=== PATIENT | female | born 1970 | race Caucasian/White ===

== ENCOUNTER → 2021-02-20 08:08 | Outpatient (BNVA) | payer OTHER, SELFPAY | PROVIDERS: Visit Provider Nurse Practitioner Family ==

== ENCOUNTER 2021-03-16 11:52 | Day surgery (SDC) | payer OTHER, SELFPAY ==
[2021-03-10 14:41] VITALS: BMI 21.1
--- NOTE | 2021-03-15 15:04 | HO.ANESPROP2 ---
Documented by User: Marbella Cain NP 03/15/21 15:05 HPI - Anesthesia Eval Consult details Narrative: 50yo F for Colonoscopy [facility] Past Medical History Medical History (Updated 03/10/21 @ 14:39 by Cherelle Hall, RN) COVID-19 vaccine series completed Elevated cholesterol GERD (gastroesophageal reflux disease) HTN (hypertension) Surgical History Surgical History (Updated 03/10/21 @ 14:39 by Cherelle Hall RN) History of endoscopy History of hand surgery History of tonsillectomy [place] teeth extracted Social History Social History Household Members: Family Are you a primary care coordination manager to a significant other at home: No Do you presently have visiting nurse or other home services: No Alcohol intake: current Alcohol intake frequency: a few times a month Patient Tobacco Use Status: Former Tobacco user Quit Date: 10 yrs ago Tobacco use type: Cigarette Use of substances other than those prescribed or required for medical reasons: No Have you been hit, kicked, punched, or otherwise hurt by someone within the past year? If so, by whom?: No Are you DNR?: No Advance Directives: No Advance Directives Information Provided: No Advance Directives on File: No Recently lost weight without trying: No Eating poorly because of decreased appetite: No Nutrition Risks: No Nutritional Risk Patient : No Meds Allergies Allergy/AdvReac Type Severity Reaction Status Date / Time amoxicillin AdvReac Severe Anaphylaxis Verified 03/10/21 14:40 Home Medications Medication Instructions Recorded Confirmed Last Taken Type amlodipine 5 mg tablet 5 mg PO DAILY 02/20/21 03/10/21 Unknown History omeprazole 20 mg capsule,delayed 20 mg PO DAILY 02/20/21 03/10/21 Unknown History release rosuvastatin 5 mg tablet 5 mg PO BEDTIME 02/20/21 03/10/21 Unknown History Exam Exam Date and Time: March 15, 2021 1504 Height,Weight and Vital Signs: Height 5 ft 7 in Weight 61.235 kg Assessment and Plan Assessment Anesthesia Assessment: Chart Reviewed Documented by User: Renée Plaza MD 03/16/21 12:51 [facility] Past Medical History Medical History (Updated 03/10/21 @ 14:39 by Cherelle Hall, RN) COVID-19 vaccine series completed Elevated cholesterol GERD (gastroesophageal reflux disease) HTN (hypertension) Functional capacity: independent ambulation Patient : No Family History Family history of problems with anesthesia: No Surgical History Surgical History (Updated 03/10/21 @ 14:39 by Cherelle Hall, RN) History of endoscopy History of hand surgery History of tonsillectomy [place] teeth extracted History of Problems with Anesthesia: No Social History Social History Household Members: Family Are you a primary care coordination manager to a significant other at home: No Do you presently have visiting nurse or other home services: No Alcohol intake: current Alcohol intake frequency: a few times a month Patient Tobacco Use Status: Former Tobacco user Quit Date: 10 yrs ago Tobacco use type: Cigarette Use of substances other than those prescribed or required for medical reasons: No Have you been hit, kicked, punched, or otherwise hurt by someone within the past year? If so, by whom?: No Are you DNR?: No Advance Directives: No Advance Directives Information Provided: No Advance Directives on File: No Recently lost weight without trying: No Eating poorly because of decreased appetite: No Nutrition Risks: No Nutritional Risk Patient : No Meds Allergies Allergy/AdvReac Type Severity Reaction Status Date / Time amoxicillin AdvReac Severe Anaphylaxis Verified 03/10/21 14:40 Home Medications Medication Instructions Recorded Confirmed Last Taken Type amlodipine 5 mg tablet 5 mg PO DAILY 02/20/21 03/10/21 Unknown History omeprazole 20 mg capsule,delayed 20 mg PO DAILY 02/20/21 03/10/21 Unknown History release rosuvastatin 5 mg tablet 5 mg PO BEDTIME 02/20/21 03/10/21 Unknown History Exam Airway Mallampati Class: II TM Dist: >3cm Neck ROM: Full Heart: RRR Lungs: CTA Assessment and Plan Final Anesthetic Review Family History of Problems with Anesthesia: No History of Problems with Anesthesia: No
--- NOTE | 2021-03-16 12:53 | P.HPSUR_ITS ---
Pre-Procedural Eval Section A Date of Service: 03/16/21 Section B Chief Complaint: Irritable bowel syndrome without diarrhea Relevant Family History (Specify if Yes): No Relevant Social History: Other (specify) Present Medications: see Short Stay Collaborative assessment Medical History: Significant History (Elevated cholesterol GERD (gastroesophageal reflux disease) HTN (hypertension)) History of Previous Operations: Relevant previous surgery/procedure and date(s) (History of endoscopy History of hand surgery History of tonsillectomy [place] teeth extracted) Allergies: Allergies Allergy/AdvReac Type Severity Reaction Status Date / Time amoxicillin AdvReac Severe Anaphylaxis Verified 03/10/21 14:40 Review of Systems Sugical H&P ROS: Negative: Constitution, Cardiovascular, Respiratory, Neurological, Psychiatric, Hem-Onc, Allergic/Immunologic, Gastrointestinal, Genitourinary, Musculoskeletal, Integumentary, Endocrine and Eyes/Ears/Nose/Throat Exam Surgical H&P Exam: Normal: HEENT, Normal: Heart, Normal: Lungs, Normal: Extremities, Normal: Abdomen, Normal: Skin and Normal: Neurological Plan Diagnosis/Plan: Unchanged I have reviewed the history and physical and performed a pertinent physical examination on my patient. No changes have occurred unless specified.
[2021-03-16 12:54] VITALS: BP 117/78; PULSE 98; RESP 16; TEMP 533.3; TEMP 992; O2SAT 99
[2021-03-16] MEDS: Lactated Ringers 1,000 ML 100 ML IVCONT (12:58)
--- NOTE | 2021-03-16 13:33 | PM.OP ---
Brief Operative Note Date of Service: 03/16/21 Pre-op diagnosis: hx of IBS, diarrhea, needs screening as well Post-op diagnosis: same Procedure: see op note Surgeon: Ricki Kramer MD Anesthesia: MAC Was an Dust Control Engineer used for this Procedure?: No Estimated blood loss (mL): 0 Condition: stable Disposition: PACU
--- NOTE | 2021-03-16 13:33 | W.PM.OPN ---
Operative Note Operative Note Date of Service: 03/16/21 Narrative: Operative Information Procedure Description: Colonoscopy COLONOSCOPY Instrument: Olympus variable stiffness pediatric scope 190L Colonoscopy Monitoring: Vital signs and clinical assessment, continuous EKG monitoring, Pulse oximetry, Carbon Dioxide monitoring and blood pressure monitoring were done throughout the procedure. Colon withdrawal time was [] minutes. Procedure: The patient was placed in the left lateral decubitis position and pre-procedure medications were administered. After a digital rectal examination of the ano-rectum, the video colonoscope was inserted into the rectum and advanced through the colon to the cecum/TI. The colonoscope was slowly withdrawn in a retrograde panoramic fashion and the colon mucosa was carefully examined including a retroflexed view of the rectum. Findings and interventions are described below. Procedure Difficulty:moderate, pressure applied due to looping Findings: Terminal Ileum-normal, bx taken random bx taken to r/o microscopic colitis Cecum:normal Ascending Colon: normal, few diverticula seen Transverse Colon -normal, few diverticula seen Descending Colon:normal, several small tics seen Sigmoid Colon: many diverticula seen Rectum: Retroflexion with small internal hemorrhoids, grade I Anorectum - normal Colon preparation: [place] Bowel Preparation Scale Right colon; 1 Transverse colon: 2 Left colon; 2 (0 = Unprepared colon segment with mucosa not seen due to solid stool that cannot be cleared. 1 = Portion of mucosa of the colon segment seen, but other areas of the colon segment not well seen due to staining, residual stool and/or opaque liquid. 2 = Minor amount of residual staining, small fragments of stool and/or opaque liquid, but mucosa of colon segment seen well. 3 = Entire mucosa of colon segment seen well with no residual staining, small fragments of stool or opaque liquid) Impression and Post Procedure Diagnosis: internal hemorrhoids diverticular disease Plan: High fiber diet leaflet Avoid straining at stool, epsom salts and sitz bath, anusol supps or cream Repeat Colonoscopy in 5 years due to right sided prep or earlier if clinically indicated, next time consider 2 d prep Above findings were reviewed with the patient and relevant handouts were provided if indicated.
[2021-03-16 13:42] VITALS: BP 104/64; PULSE 73; RESP 12; TEMP 36.3; O2SAT 100
[2021-03-16 13:57] VITALS: BP 117/74; PULSE 74; RESP 20; TEMP 36.3; O2SAT 100
--- NOTE | 2021-03-16 14:43 | HO.POSTANES ---
Post Anesthesia Evaluation Post Anesthesia Evaluation Vital Signs: Vital Signs Temp Pulse Resp BP Pulse Ox 03/16/21 13:57 97.4 F 74 20 117/74 100 03/16/21 13:42 97.4 F 73 12 104/64 100 03/16/21 12:54 992 F H 98 16 117/78 99 Anesthesia: Monitored Mental Status: Awake Pain Control: Satisfactory Nausea/Vomiting: None Hydration: Adequate Anesthesia-Related Issues: No Anes. Related Issues
== END 2021-03-16 14:27 | disposition home or self-care (01) ==
PROVIDERS: PCP Internal Medicine; Visit Provider Internal Medicine Gastroenterology
PROC: 0DJD8ZZ Inspection of Lower Intestinal Tract, Via Natural or Artificial Opening Endoscopic (ICD-10-PCS; CPT 45378; principal; 2021-03-16 13:10)
DX: Z12.11 Encounter for screening for malignant neoplasm of colon (principal); K57.30 Diverticulosis of large intestine without perforation or abscess without bleeding; K64.0 First degree hemorrhoids; K58.2 Mixed irritable bowel syndrome; K21.9 Gastro-esophageal reflux disease without esophagitis; I10 Essential (primary) hypertension; E78.00 Pure hypercholesterolemia, unspecified; Z88.0 Allergy status to penicillin
CPT/HCPCS: 45380; 88305; J3010

== ENCOUNTER → 2021-04-19 10:02 | Outpatient (BNVA) | payer OTHER, SELFPAY | PROVIDERS: PCP Internal Medicine; Visit Provider Nurse Practitioner Family ==

== ENCOUNTER → 2021-07-25 09:49 | Outpatient (BNVA) | payer OTHER, SELFPAY | PROVIDERS: PCP Internal Medicine; Visit Provider Nurse Practitioner Family ==

== ENCOUNTER → 2022-07-27 08:25 | Outpatient (BNVA) | payer OTHER, SELFPAY | PROVIDERS: PCP Internal Medicine; Visit Provider Nurse Practitioner Family | DX: Z13.89 Encounter for screening for other disorder (principal) ==

== ENCOUNTER 2023-07-29 08:22 | Outpatient (AMB) | payer OTHER, SELFPAY ==
--- NOTE | 2023-07-29 08:25 | MHC.OFFVIS ---
Intake Vital Signs 07/29/23 08:28 Height 5 ft 7 in Weight 138 lb 14.259 oz BMI 21.8 BP 144/82 H Blood Pressure Location Lt brachial Position Sitting Pulse 99 Intake Visit Reasons: 1 Year fu Intake Note: Navjot presents in the office as a 1 year follow up. CC: She states that she tried to get her fiber therapy filled but she has not gotten it from her [facility] - she has been off of it. Intellectual Property Legal Assistant Required: No Allergies amoxicillin Adverse Reaction (Severe, Verified 07/29/23 08:29) Anaphylaxis HPI 1 Year fu HPI Details LAST VISIT: GERD (gastroesophageal reflux disease) Continue current dose of PPI. Discussed with patient the importance of avoiding dietary triggers and late night snacking. Staying upright for minimal 3 hours after meals discussed with patient IBS (irritable bowel syndrome) Continue taking Citrucel S patient reports to be effective. Patient states that this helps her bowels to be more firm. Patient can take also Colace to help her move her bowels daily. Patient reports that she has only occasional postprandial abdominal bloating depending on the food that she eats. Patient tried the limb low FODMAP diet. Tries to stick to the list of food that was recommended. Continue with elimination diet. I will see patient in 1 year, sooner on as needed basis. Patient is agreeable to this plan and verbalizes understanding of instructions. She was given the opportunity to ask questions all questions answered. ? Thank you for allowing me to participate in her care Plan Medications Refilled methylcellulose (laxative) (Citrucel) take it with full glass of water 500 mg PO DAILY 90 tabs 2RF K59.00 docusate sodium 100 mg PO BEDTIME 90 caps 3RF K59.00 omeprazole 20 mg PO DAILY 90 caps 3RF K21.9 Discontinued famotidine (Pepcid) Discontinued Reason: Patient no longer taking 20 mg PO BEDTIME 90 tabs 3RF K21.9 TODAY'S VISIT Patient is here today for follow-up. Patient reports that she has been feeling well since the last time I have seen her. Patient reports that she ran out of her fiber supplement and she notice big difference. More frequent bowels. Patient sometimes will have postprandial urgency. Using stool softeners only on as needed basis. Patient denies melena, hematochezia, unintentional weight loss or ribbon like stools. Patient states that she did change her diet and follows low FODMAP diet for the most part except for holidays or special occasions. Patient states that she really notices difference with food. Patient is using omeprazole every morning. Her symptoms of acid reflux are suppressed. Patient denies melena, hematochezia, unintentional weight loss or ribbon like stools. Patient states that she has been feeling generally well [facility] Medical History COVID-19 vaccine series completed Elevated cholesterol GERD (gastroesophageal reflux disease) HTN (hypertension) Surgical History History of endoscopy History of hand surgery History of tonsillectomy Hx of colonoscopy [place] teeth extracted Social History Household Members: Family Are you a primary director of home care hospice to a significant other at home: No Do you presently have visiting nurse or other home services: No Alcohol intake: current Alcohol intake frequency: a few times a month Patient Tobacco Use Status: Former Tobacco user Quit Date: 10 yrs ago Tobacco use type: Cigarette Review of Systems Const Denies weight gain and Denies weight loss ENT Reports no additional complaints, Denies dysphagia and Denies odynophagia Card Reports no additional complaints Resp Reports no additional complaints GI Denies abdominal pain, Denies belching, Denies melena, Denies bloating, Denies change in bowel habits, Denies dysphagia, Denies excessive flatus, Denies dyspepsia, Denies heartburn, Denies diarrhea, Denies loose stools, Denies nausea, Denies odynophagia and Denies vomiting Musc Reports no additional complaints Neuro Reports no additional complaints Psych Reports no additional complaints Endo Reports no additional complaints Physical Exam Vital Signs: Last Vital Signs Pulse 99 07/29/23 08:28 BP 144/82 H 07/29/23 08:28 BMI result Body Mass Index 21.8 Const General: healthy appearing, no acute distress and well developed Nutritional Appearance: well nourished Orientation/consciousness: patient oriented x3 Resp Effort & Inspection: normal respiratory effort, able to speak in complete sentences, no tracheal deviation and symmetric chest movement Auscultation: clear to auscultation bilaterally Cardio Rate: regular rate GI Inspection: Yes normal to inspection and No distended Palpation (GI): Soft to palpation, not firm, nontender and No hepatosplenomegaly present Auscultation: normal bowel sounds General: Yes no CVA tenderness Back/Spine/Pelvis Back: no CVA tenderness Skin General skin exam: elasticity normal, turgor normal and dry skin Neuro General: patient oriented x3 Psych Appearance: grossly normal Mental Status: mental status grossly normal Assessment & Plan Assessment & Plan (1) GERD (gastroesophageal reflux disease): Code(s): K21.9 - Gastro-esophageal reflux disease without esophagitis Qualifiers: Esophagitis presence: esophagitis presence not specified Qualified Code(s): K21.9 - Gastro-esophageal reflux disease without esophagitis (2) IBS (irritable bowel syndrome): Code(s): K58.9 - Irritable bowel syndrome without diarrhea Qualifiers: Irritable bowel syndrome type: with both diarrhea and constipation Qualified Code(s): K58.2 - Mixed irritable bowel syndrome Plan Continue high-fiber diet. Patient was encouraged to take probiotics. Take fiber supplements as well. Continue omeprazole daily. Discussed with patient avoiding dietary triggers late night snacking. Staying upright 3 hours after meals discussed with patient. Patient will follow-up in 1 year, sooner on as needed basis patient is agreeable to this plan and verbalizes understanding of instructions. She was given the opportunity to ask questions and all questions answered. Thank you for allowing me to participate in her care Medications: Refilled methylcellulose (laxative) (Citrucel) take it with full glass of water 500 mg PO DAILY 90 tabs 2RF K59.00 - Constipation, unspecified omeprazole 20 mg PO DAILY 90 caps 3RF K21.9 - Gastro-esophageal reflux disease without esophagitis Coding Level of Care Code Est Pt Level 3 (85331) Diagnoses Gastroesophageal reflux disease, unspecified whether esophagitis present K21.9 Esophagitis presence: esophagitis presence not specified Irritable bowel syndrome with both constipation and diarrhea K58.2 Irritable bowel syndrome type: with both diarrhea and constipation Time Spent (min) 25 Comment 15 minutes spent with patient and additional 10 minutes spent reviewing her records
[2023-07-29 08:28] VITALS: BP 144/82; PULSE 99; BMI 21.8
== END 2023-07-29 09:27 | disposition home or self-care (01) ==
PROVIDERS: PCP Internal Medicine; Visit Provider Nurse Practitioner Family
DX: K21.9 Gastro-esophageal reflux disease without esophagitis (principal); K58.2 Mixed irritable bowel syndrome
CPT/HCPCS: 99213

== ENCOUNTER → 2023-07-29 08:22 | Outpatient (BNVA) | payer OTHER, SELFPAY | PROVIDERS: Visit Provider Nurse Practitioner Family ==

== ENCOUNTER 2024-07-28 08:03 | Outpatient (AMB) | payer OTHER, SELFPAY ==
--- OUTSIDE RECORDS SUMMARY | 2024-07-28 08:11 | XMS_ITS | Clinical Summary ---
Author Organization [facility] Address [address] [place] [address] Phone Care Team Providers Care Bowling Teacher Name Role Phone Eleuterio Conti MD Primary Care Provider [phone] Allergies Active Allergy Reactions Criticality Noted Date Comments Amoxicillin Anaphylaxis High 05/25/2024 Penicillins Anaphylaxis High 05/25/2024 Medications omeprazole (PriLOSEC) [address] capsule Take 1 capsule (20 mg total) by mouth 1 (one) time each day. Do not crush or chew. Active amLODIPine (NORVASC) 5 mg tablet Take by mouth 1 (one) time each day. Active rosuvastatin (CRESTOR) 5 mg tablet Take 1 tablet (5 mg total) by mouth 1 (one) time each day. Active aspirin 81 mg EC tablet Take 1 tablet (81 mg total) by mouth 1 (one) time each day. Active Encounters Date Type Department Care Team Description 06/11/2024 7:30 AM EST - 06/11/2024 10:00 AM EST Surgery [facility] OR [address] [place] [phone] Yoselyn Jones MD LEFT THUMB [facility] ARTHROPLASTY W/ SUTURE INTERNAL BRACE & PALMARIS LONGUS AUTOGRAFT [[id number] (CPT??)] 06/11/2024 7:17 AM EST Anesthesia Event [address] [phone] Gabriel Jacobs MD Burton, Heather, CRNA 06/11/2024 5:45 AM EST - 06/11/2024 1:40 PM EST Hospital Encounter [facility] Main OR [address] [place] [address] Yoselyn Jones MD Unilateral primary osteoarthritis of first carpometacarpal joint, left hand Discharge Disposition: Home or Self Care from Last 3 Months Surgical History Surgery Date Site/Laterality Comments CARPAL TUNNEL RELEASE Left MENISCECTOMY Right Medical History Medical History Date Comments Hypertension Hyperlipidemia Arthritis Social History Tobacco Use Types Packs/Day Years Used Date Smoking Tobacco: Former Cigarettes Tobacco Cessation:Counseling Given: Not Answered Alcohol Use Standard Drinks/Week Comments Yes 0 (1 standard drink = 0.6 oz pur e alcohol) occasionally Interpersonal Safety Answer Date Record ed Physical Abuse 06/11/2024 Verbal Abuse 06/11/2024 Comments No Sex and Gender Information Value Date Recorded Sex Assigned at Female 06/10/2024 1:10 PM EST Legal Sex Female 1:36 PM EDT Gender Identity Female 06/10/2024 1:10 PM EST Sexual Orientation Straight 06/10/2024 1: 10 PM EST Obstetrics History Last Filed Vital Signs Vital Sign Reading Time Taken Comments Blood Pressure 114/63 06/11/2024 12:51 PM EST Pulse 81 06/11/2024 12:51 PM EST Temperature 36.4 ??C (97.6 ??F) 06/11/2024 12:[address] Respiratory Rate 18 06/11/2024 12:51 PM EST Oxygen Saturation 96% 06/11/2024 12:51 PM EST Inhaled Oxygen Concentration - - Weight 61.2 kg (135 lb) 05/25/2024 10:00 AM EST Height 170.2 cm (5' 7 ) 05/25/2024 10:00 AM EST Body Mass Index 21.14 05/25/2024 10:00 AM EST Plan of Treatment Health Maintenance Due Date Last Done Comments Breast Cancer Screening 1968 DTaP,Tdap,and Td Vaccines (1 - Tdap) 09/18/1987 Hepatitis B Vaccines (1 of 3 - 19+ 3-dose series) 09/18/1987 Cervical Cancer Screening: P ap Smear 1989 Pneumococcal Vaccine: 50+ Years (1 of 1 - PCV) 2018 Zoster Vaccines (1 of 2) 2018 Colorectal Cancer Screening: Colonoscopy 12/27/2023 Depression Screening 12/27/2023 HIV Screening 12/27/2023 Hepatitis C Screening 12/27/2023 Social Influencers of Health Screening 12/27/2023 COVID-19 Vaccine (2023-2 5 season) 2024 05/03/2021, 09/26/2020, 09/04/2020 Influenza Vaccine (#1) 2024 HIB Vaccines Aged Out No longer eligi ble based on patient's age to complete this topic HPV Vaccines Aged Out No longer eligi ble based on patient's age to complete this topic Hepatitis A Vaccines Aged Out No long er eligible based on patient's age to complete this topic IPV Vaccines Aged Out No longer eligi ble based on patient's age to complete this topic MMR Vaccines Aged Out No longer eligi ble based on patient's age to complete this topic Meningococcal ACWY Vaccine Aged Out N o longer eligible based on patient's age to complete this topic Meningococcal B Vacine Aged Out No lo nger eligible based on patient's age to complete this topic Pneumococcal Vaccine: Pediatrics (0 to 5 Years) and At-Risk Patients (6 to 64 Years) Aged Out No longer eligible b ased on patient's age to complete this topic RSV Immunization Patients Under 20 months Aged Out No longer eligible b ased on patient's age to complete this topic Varicella Vaccines Aged Out No longer eligible based on patient's age to complete this topic Medical Devices Implanted Type Area Boom Operator Device Identifier Shelf Expiration Date Model / Serial / Lot Kit Dx Swivelock 3.5x8.5mm W/Fork Eyelet - Sn/A - [id number] Implanted:Qty: 1 on 06/11/2024 by Yoselyn Jones MD at [facility] Arthroscopy Implants Sports Med Left: Hand [employer] 07/24/2028 AR-8978P / N/A / [id number] Kit Dx Swivelock 3.5x8.5mm W/Fork Eyelet - Sn/A - [id number] Implanted:Qty: 1 on 06/11/2024 by Yoselyn Jones MD at [facility] Arthroscopy Implants Sports Med Left: Hand [employer] 08/24/2028 AR-8978P / N/A / [id number] Dental Implants Dental Implants Bilatera l: Mouth Procedures Procedure Name Priority Date/Time Associated Diagnosis Comments TH AN LMA(NO CHARGE) Routine 06/11/2024 8:57 AM EST TISSUE EXAM Routine 06/11/2024 8:09 AM EST Unilateral primary osteoarthritis of first carpometacarpal joint, left hand WI EXCISION GANGLION WRIST DORSAL/VOLAR RECURRENT 06/11/2024 7:45 AM EST Unilateral primary osteoarthritis of first carpometacarpal joint, left hand Case Notes MINI C-ARM, ARTHREX INTERNAL BRACE, TENDON HARVESTER, 2-0 FIBERWIRE OR ETHIBOND, 0.063 KWIRE , REGIONAL W/ MAC WI REMOVAL OF IMPLANT DEEP 06/11/2024 7:45 AM EST Unilateral primary osteoarthritis of first carpometacarpal joint, left hand Case Notes MINI C-ARM, ARTHREX INTERNAL BRACE, TENDON HARVESTER, 2-0 FIBERWIRE OR ETHIBOND, 0.063 KWIRE , REGIONAL W/ MAC WI ARTHROPLASTY INTERCARPAL/CARPOM ETACARPAL JOINTS INTERPOSTION 06/11/2024 7:45 AM EST Unilateral primary osteoarthritis of first carpometacarpal joint, left hand Case Notes MINI C-ARM, ARTHREX INTERNAL BRACE, TENDON HARVESTER, 2-0 FIBERWIRE OR ETHIBOND, 0.063 KWIRE , REGIONAL W/ MAC POC PREGANCY, URINE SCREENING Routine 06/11/2024 7:34 AM EST TH AN NERVE BLOCK AXILLARY (NO CHARGE) Routine 06/11/2024 7:26 AM EST TH AN NERVE BLOCK AXILLARY (CHARGE) Routine 06/11/2024 7:26 AM EST from Last 3 Months Results * TH AN LMA(NO CHARGE) (06/11/2024 8:57 AM EST) Narrative Marbella Betts CRNA - 06/11/2024 8:57 AM EST Marbella Betts CRNA ? 06/11/2024 ??8:58 AM General Information and Staff Patient location during procedure: OR Performed: resident/EARTHMOVING PLANT OPERATOR/CAA Performed by: Marbella Betts CRNA Authorized by: Gabriel Jacobs MD ?? Intubation Airway not difficult Urgency: elective Final Airway Details Number of attempts at approach: 1Final airway type: LMA Indications and Patient Condition Indications for airway management: anesthesia Spontaneous ventilation: present Sedation level: Yes Preoxygenated: yes Soft Tissue Damage: No Dentition Unchanged: Yes Patient position: neutral MILS not maintained throughout Mask difficulty assessment: 0 - not attempted Start Time: 06/11/2024 8:09 AM us Gabriel Jacobs MD ANESTHESIA ORDERABLES Final Re sult * Tissue exam (06/11/2024 8:09 AM EST) Final Diagnosis Wrist, Left, Volar: -FIBROTENDINOUS TISSUE WITH DEGENERATIVE CHANGES -Diagnostic features of a ganglion cyst are not observed. Recommend clinical correlation. 06/12/2024 11:26 AM EST [facility] Gross Description A. Wrist, Left, Volar: Labeled left wrist . Received in formalin, on Telfa, is a 1.1 x 0.5 x 0.2 cm soft to rubbery gaines-pink tissue with attached adipose tissue. The specimen is bisected and submitted in entirety in one cassette, two pieces. TS 06/12/2024 11:26 AM [facility] Disclaimer Unless otherwise specified, all tissue is 10% NB formalin fixed and paraffin embedded. 06/12/2024 11:26 AM [facility] Tissue Structure of left wrist region / Unknown 06/11/2024 8:09 AM EST 06/11/2024 12:45 PM EST us Yoselyn Jones MD LAB PATHOLOGY ORDERABLES Nya tee Result [facility] [address] [place] [address], [place] [phone] * POC , urine NO CHARGE screening manually resulted (06/11/2024 7:34 AM EST) HCG, Ur POC Negative Negative POC hCG Int QC Pass? Yes Yes Urine Urine specimen obtained by clean catch procedure / Unknown 06/11/2024 7:34 AM EST Yoselyn Jones MD POINT OF CARE TEST ENTER/EDIT ORDERABLES Final Result * TH AN NERVE BLOCK AXILLARY (CHARGE), TH AN NERVE BLOCK AXILLARY (NO CHARGE) (06/11/2024 7:26 AM EST) Narrative Gabriel Jacobs MD - 06/11/2024 7:26 AM EST Gabriel Jacobs MD ? 06/11/2024 ??7:46 AM Peripheral Block Patient location during procedure: post-op Start time: 06/11/2024 7:26 AM End time: 06/11/2024 7:30 AM Reason for block: post-op pain management Staffing Performed: anesthesiologist Anesthesiologist: Gabriel Jacobs MD Preanesthetic Checklist Completed: patient identified, IV checked, site marked, risks and benefits discussed, surgical consent, monitors and equipment checked, pre-op evaluation and timeout performed Peripheral Block Patient position: supine Prep: ChloraPrep Patient monitoring: continuous pulse ox and heart rate (NIBP) Block type: axillary Laterality: left Injection technique: single-shot Guidance: ultrasound guided and Ultrasound image saved to chart Local infiltration: lidocaine Infiltration strength: 1 % Dose: 5 mL Needle Needle type: Quincke Needle gauge: 21 G Needle length: 10 cm Needle localization: ultrasound guidance (Ultrasound with tip visualized throughout) Medications Administered ropivacaine (NAROPIN) injection 0.5 % - infiltration 30 mL - 06/11/2024 7:26:00 AM lidocaine PF (XYLOCAINE-MPF) local injection 2% - infiltration 5 mL - 06/11/2024 7:26:00 AM Assessment Injection assessment: negative aspiration for heme, no paresthesia on injection, incremental injection with negative aspiration q 5ml and local visualized surrounding nerve on ultrasound Paresthesia pain: none Heart rate change: no Slow fractionated injection: yes Additional Notes Timeout performed with bedside RN. Anesthesia and surgical consent on chart. Standard aseptic technique: hat, mask, sterile gloves, eye protection. Monitors: NIBP, SpO2, EKG Sedation with meaningful contact. Chloraprep to peripheral nurse block site. Ultrasound guidance throughout. Injectate: Ropivacaine 0.5% ?? Volume: 20 mL Decadron 4 mg mixed with local anesthetic. Charlotte-neural/fascial plane visualization of local anesthetic spread. Ultrasound image saved to chart. Block performed per surgeon request (ordered on chart). us Gabriel Jacobs MD ANESTHESIA ORDERABLES Final Re sult from Last 3 Months Insurance [facility] [address] [place] [id number] Care Teams Bowling Teacher Relationship Specialty Start Date End Date Eleuterio Conti MD [address] [place], [place] PCP - General Internal Medicine 06/11/24
--- OUTSIDE RECORDS SUMMARY | 2024-07-28 08:12 | XMS_ITS ---
Author Name [facility] Organization Unknown History of Medication Use Medication Directions Dispensed Refills Start Date End Date [facility] azithromycin 250 mg tablet TAKE DIRECTED, STARTING THE DAY AFTER SURGERY 04/09/2024 completed clindamycin HCl 150 mg capsule TAKE 1 CAPSULE BY MOUTH THREE TIMES A DAY FOR 7 DAYS STARTING THE DAY AFTER SURGERY 04/09/2024 completed oxycodone 5 mg tablet TAKE 1 TABLET EVERY 4 TO 6 HOURS BY MOUTH 06/25/2024 completed omeprazole 20 mg capsule,delayed release TAKE 1 CAPSULE BY MOUTH EVERY DAY active lidocaine (PF) 10 mg/mL (1 %) injection solution Take 1 mL by injection route. 01/02/2024 03/05/2024 completed amlodipine 5 mg tablet TAKE 1 TABLET BY MOUTH EVERY DAY active rosuvastatin 10 mg tablet TAKE 1 TABLET BY MOUTH EVERYDAY AT BEDTIME active acetaminophen 300 mg-codeine 30 mg tablet TAKE 1 TABLET BY MOUTH EVERY 6 HOURS NEEDED FOR PAIN 03/05/2024 completed triamcinolone acetonide 40 mg/mL suspension for injection Take 20 mg by injection route. 01/02/2024 04/09/2024 completed rosuvastatin 5 mg tablet TAKE 1 TABLET BY MOUTH EVERYDAY AT BEDTIME 04/09/2024 completed Fiber Therapy (methylcellulose) 500 mg tablet TAKE 1 TABLET EVERY DAY -TAKE IT WITH FULL GLASS OF WATER 07/22/2024 completed trazodone 50 mg tablet TAKE 1-2 TABLETS BY MOUTH AT BEDTIME NEEDED 06/25/2024 completed chlorhexidine gluconate 0.12 % mouthwash RINSE WITH 15 ML, HOLD FOR 30 SECONDS AND EXPECTORATE TWICE A DAY FOR 7 DAYS START DAY AFTER SURGERY 03/05/2024 completed ibuprofen 600 mg tablet PLEASE SEE ATTACHED FOR DETAILED DIRECTIONS 03/05/2024 completed rosuvastatin 10 mg tablet TAKE 1 TABLET BY MOUTH EVERYDAY AT BEDTIME active oxycodone 5 mg tablet TAKE 1 TABLET EVERY 4 TO 6 HOURS BY MOUTH 06/25/2024 completed azithromycin 250 mg tablet TAKE DIRECTED, STARTING THE DAY AFTER SURGERY 04/09/2024 active lidocaine (PF) 10 mg/mL (1 %) injection solution active amlodipine 5 mg tablet TAKE 1 TABLET BY MOUTH EVERY DAY active acetaminophen 300 mg-codeine 30 mg tablet TAKE 1 TABLET BY MOUTH EVERY 6 HOURS NEEDED FOR PAIN 03/05/2024 completed trazodone 50 mg tablet TAKE 1 TO 2 TABLETS BY MOUTH AT BEDTIME NEEDED active triamcinolone acetonide 40 mg/mL suspension for injection Take 20 mg by injection route. 01/02/2024 04/09/2024 active Allergies Allergen Reaction Severity Comment Documented Date Source Statu s AMOXICILLIN ENS_AONECT PENICILLINS ENS_AONECT Problems Problem Status Onset Date Problem Type Date of Resoluti on Source Ganglion cyst of left volar wrist active 2023-10-18 ProblemAct ENS_AONECT Arthritis of first carpometacarpal joint of left hand active 2023-10-17 ProblemAct ENS_AONECT
--- OUTSIDE RECORDS SUMMARY | 2024-07-28 08:12 | XMS_ITS | Data Portability ---
Author Organization [place] [facility] [place] Address [address] [place] [address] Care Team Providers Care Museum Service Scheduler Name Role Phone ADRIANNA MARIE MD Primary Care Provider Unav ailable ADRIANNA MARIE MD Referring Provider Unavail able ADRIANNA MARIE Primary Care Provider Assessment Encounter Date Assessment Date Assessment LastModified by Organization Details LastModified Time 12/05/2023 12/05/2023 The above findin gs were discussed in detail today with the patient. The results of the CT scan were discussed with the patient. She has a bone defect at the base of the first metacarpal, this would preclude doing a anchor and suture tape suspension if we are to do a revision surgery. Given this is would be her third surgery, she does not have a lot of options available as her FCR was already harvested for graft and now she has a defect in the first metacarpal base which makes subsequent surgeries difficult to plan for. I will discuss her case with colleagues to see if they have a solution for a revision procedure that may work for her. 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 We did touch discussed her volar ganglion cyst. I did discuss with her again that revision surgery would put her radial artery at increased risk given its location and that it would be a revision surgery. Excision of the cyst may be incomplete if it is associated with the radial artery and may lead to recurrence. I did let her know that volar ganglion cyst have a high recurrence rate at baseline with a primary surgery, revision may lead to increased risk of recurrence. We did discuss a in office aspiration, given its very subcutaneous nature, I could perform this under ultrasound guidance, avoiding the radial artery. She does not have time to do this procedure in the office today however would like to consider this and we will book a subsequent appointment when she has more time to have this done. All of her questions were answered, she will follow-up at her convenience. Not available 12/05/2023 11:57:57 01/02/2024 01/02/2024 The above findin gs were discussed in detail today with the patient. 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 We had already gone over the risks of repeat surgical excision given its proximity to the radial artery and the fact that it has a volar cyst, she does have an increased incidence of recurrence or incomplete excision if it is intimately involved with the radial artery. She would like to proceed with an office aspiration and injection. I did let her know that there is a 50% recurrence rate. She understands this and would like to proceed. Details of injection and as well as risks were discussed, including but not limited to infection, bleeding, nerve injury, no improvement, worsening of symptoms, flare reaction, skin depigmentation, and lipodystrophy. I let them know it can take 2 days to 2 weeks to start working and up to 6 weeks to take its full effect. They understand this and gave verbal consent. They tolerated the procedure well. She will wear a wrist splint for the next 1 to 2 weeks to help prevent recurrence. She will continue to monitor for recurrence of symptoms. As for the thumb CMC joint, we discussed treatment options as well. I discussed with a hand surgery colleague about revision options for people in her situation, we did discuss using a palmaris longus autograft to reconstruct the ligament at the base of the first and second metacarpals to prevent subsidence, this would be in the combination of drill holes and using an anchor. However with a second revision, there is increased risk for complications and continued symptoms after the surgery. We also discussed conservative treatment including a thumb CMC splint or bracing, anti-inflammatorie s, or another steroid injection. She like to proceed with another steroid injection today. She understands that if she would like to proceed with surgery for either of the cyst or the thumb CMC, this cannot be done until 3 months after her injection for risk for increase of infection. All of her questions were answered, she is in agreement the plan. I will see her for follow-up in 2 months. Not available 01/02/2024 12:02:23 03/05/2024 03/05/2024 The above findin gs were discussed in detail today with the patient. She did have some relief from a thumb CMC steroid injection though pain has been returning recently. She does not think that the volar ganglion cyst change much after a aspiration and injection attempt. We discussed her treatment options again which include continued with observation, activity modification, bracing, steroid injections or considering revision surgery for 1 or both of her problems. We discussed the revision thumb CMC arthroplasty again, this would involve using her palmaris longus as a tendon graft and likely an anchor to support and stabilize the thumb metacarpal. The goal would to be provide stability and decrease pain. we again discussed the risks which are higher with a second revision surgery which include pain, bleeding, damage to nerve, tendons, vessels, infection, failure which is higher with every revision surgery, continued pain, nonrelief of symptoms, stiffness, lack of function, need for revision surgery, and the risks of anesthesia. I did let her know with every revision surgery, there is a less chance that this will lead to lasting results. She understands this. We also discussed revision ganglion cyst excision and the risks associated with this including damage to the radial artery and a higher rate of recurrence especially because it is a revision surgery and has a volar ganglion cyst. She understands this. She like to about her options. She would not be able to have surgery until she is 3 months from her injection which would be in the beginning of March anyway. She will be slowing down with work over the winter which may help her symptoms, she will try braces and anti-inflammatorie s that she has at home. She will return to see me in 1 month for reevaluation. All of her questions were answered, she is in agreement the plan. Not available 03/05/2024 09:26:48 04/09/2024 04/09/2024 The above findin gs were discussed in detail today with the patient. We discussed her treatment options in detail today. She can continue with conservative treatment, activity modification, bracing, anti-inflammatorie s or consider surgery. Surgery would in the form of a revision thumb CMC arthroplasty likely with palmaris longus autograft and suture suspension and a revision volar ganglion cyst excision. I did let her know with revision surgeries for both of these problems, there is an increased risk that her symptoms do not resolve or they recur. Given that this is her third surgery for the thumb CMC, I cannot give predictable outcomes for how she do after surgery however I do think that I could improve her current pain. She would be in a splint and then a cast for at least 6 to 8 weeks after surgery and then would start physical therapy slowly to work on range of motion though I would not let her do any weightbearing pinching or grasping until she is probably 3 months from surgery as I do want to make sure that this heals and does not subside again. She understands this. Risks of surgery were discussed with the patient which include but are not limited to bleeding, infection, injury to nerves, tendons, vessels, pain, stiffness, non-relief of symptoms, recurrence, needing more surgery in the future as well as risks of anesthesia. All questions were answered to the patient's satisfaction. They understood these risks and agreed to proceed, consent was obtained today. She will obtain presurgical clearance prior to surgery as she is at increased risk for medical complications. She would like to do this in May after the holidays. We will schedule for her at her convenience. All of her questions were answered, she is in agreement the plan. Not available 04/09/2024 12:19:30 06/25/2024 06/25/2024 The above findin gs were discussed in detail today with the patient. She is 2 weeks postop status post left thumb revision CMC arthroplasty with internal brace and palmaris longus autograft, left thumb removal of implant, and left volar mass revision excision, doing well. Her postop splint was removed and she will be placed in a thumb spica cast. She will remain in this for 4 weeks. Her IP joint will be free, she can work on active IP joint motion as well as finger range of motion. She will be nonweightbearing a thing heavier than 10 pounds, no pushing or pulling. Cast care was discussed with the patient. She will return in 4 weeks for repeat evaluation, cast removal, and will be sent to physical therapy to have a custom splint made. She will start physical therapy at that time with just active gentle range of motion of the wrist and thumb. She will progress slowly with physical therapy to allow for adequate healing. I will put in a prescription for the splint to be made the day of her follow-up visit and a separate prescription for physical therapy which she wants to do closer to home in [place] at [facility]. She will wear the splint at all times except for hygiene and when she is working with physical therapy. They will progress her to wean out of the splint over the next 4 to 6 weeks. She will not do any heavy lifting or strengthening until she is 3 months from surgery. She can start scar massage at the time of her next visit. She will return to see me after that at 3 months from surgery. All of her questions were answered, she is in agreement the plan. Not available 06/25/2024 16:54:03 Plan of Treatment Reminders Order Date Submit Date Provider Last Modified By Organization Details Last Modified Time Details Appointments POST-OP 2024 11:15A M Yoselyn camacho MD Not available Not available Not available Lab None recorded. Referral None recorded. Procedures None recorded. Surgeries arthropla sty, interposi tion/inte rcarpal/C MC joints (SURG) 2023 025 [email or web address] Not available 06/12/2024 10:23:41 Imaging XR, wrist, 3 or more view 2024 025 [email or web address] [facility], [address], [place], [address], 06/25/2024 17:20:21 Medication Orders lidocaine (PF) 10 mg/mL (1 %) injection solution 2023 024 [email or web address] 243 [id number], [address], [place], [address], 03/05/2024 09:05:26 triamcino lone acetonide 40 mg/mL suspensio n for injection 2023 024 [email or web address] 2 [id number], [address] [place], [address], 04/09/2024 11:19:42 lidocaine (PF) 10 mg/mL (1 %) injection solution 2023 024 [email or web address] 243 [id number], [address] [place], [address], 03/05/2024 09:05:26 triamcino lone acetonide 40 mg/mL suspensio n for injection 2023 024 [email or web address] [id number], [address] [place], [address], 04/09/2024 11:19:42 Patient TargetsNo targets recorded. Patient Instructions Encounter Date Encounter Id Patient Instructions Last Modified By Organization Details Last Modified Time 12/05/[id number] scan of the left wrist without contrast performed on 11/19/2023 was available for review in the [facility] system. This demonstrates first metacarpal subsidence onto the distal scaphoid with a prior trapezium resection. There is a tight rope device with a button on the first and second metacarpals. There is a bone defect or cyst in the base of the first metacarpal. Impression reads trapezium resection arthroplasty with the proximal migration of the first metacarpal, pseudo articulating with the distal scaphoid. No fracture. Not available 12/05/2023 11:54:14 01/02/2024 [id number] You have been provided with a cortisone injection in order to reduce the pain and inflammation that you are experiencing. The injection consists of two medications. Cortisone (an anti-inflammatory that will take 48-72 hours to take effect) and Lidocaine (a numbing agent that will last 2-3 hours). Please note that not everyone will have a lasting response following the injection. PATIENT INSTRUCTIONS Once the Lidocaine wears off, you may have an increase in your pain. I recommend icing the affected area for 20 minutes 3-4 times per day. It is recommended that you refrain from any high level activities using the joint or limb that was injected for approximately 24-48 hours. Normal day-to-day activities are generally not a problem. POSSIBLE SIDE EFFECTS Individuals with dark complexions may experience some skin discoloration locally at the site of the injection. There is the possibility of an increase in discomfort within 48 hours following the injection. This is called a ? f lare? . To help minimize the chances of this, please see the post-injection instructions above. There is a less than 1% chance of an infection. If you notice any signs of infection (redness, warmth, drainage, fever greater than 100 degrees) please call our office or contact us through the portal [facility]. Not available 01/02/2024 12:00:03 06/25/2024 [id number] 4 views of the left wrist were ordered and reviewed today, this demonstrates arthroplasty space with preservation as compared to postoperative x-rays. The first metacarpal rests at the level of the second metacarpal. Interval removal of tight rope construct. Not available 06/25/2024 16:51:26 Reason for Referral None Reported. Results Created Date Observation Date Name Description Value Unit Range Abnormal Flag Note LastModifiedBy Organization Detail LastModifiedTime 12/05/[address], hand, w/o contr ast No observ ation record ed. [facility] [address] [place], [address], 12/05/2023 13:01:44 12/09/[address], hand, w/o contr ast No observ ation record ed. [address] [place], [address], 12/09/2023 11:47:06 Result Notes None recorded. Problems Name Problem SNOMED Code Status Onset Date Resolution Date Notes Provider Name and Address Organization Details Recorded Time Arthritis of first carpometaca rpal joint of left hand 2794500676034 103 Active 2023 Yoselyn camacho MD [address] [facility] [address], [place], [address], [place] [facility] 4 10:30:45 Ganglion cyst of left volar wrist 1687203213564 9102 Active 2023 Yoselyn camacho MD [address] [facility] [address], [place], [address], [place] [facility] 4 16:51:25 Problem Notes None recorded. Procedures Surgical History Date Name Laterality Status Provider Name and Address Organization Details Recorded Time 5 Cast Thumb Spica 11+ completed Esthela Nicho [facility] 06/25/2024 14:47:11 5 ARTHROPLASTY, INTERPOSITION/ INTERCARPAL/CM C JOINTS (SURG) completed Komal Arias [facility] 06/12/2024 10:23:55 4 Ganglion Cyst Asp/Inj w/US completed Yoselyn Jones MD [address] [facility] [address], [place], [address], [place] [facility] 01/02/2024 11:59:35 4 LES finger joint injection completed Yoselyn Jones MD [address] [facility] [address], [place], [address], [place] [facility] 01/02/2024 11:59:52 Hand Surgery completed Delmis Panchal [facility] 10/17/2023 09:41:25 Imaging Results Imaging Date Name Status LastModified by Organiz ation Details LastModified Time 12/05/2023 CT, hand, w/o contrast completed [facility] [address] [place], [address], 12/05/2023 13:01:44 12/09/2023 CT, hand, w/o contrast completed [address] Department [address] [place], [address], 12/09/2023 11:47:06 Procedure Notes None recorded. Medical Equipment None Reported. Allergies Allergen ID Allergen Name Allergen Category Reaction Reaction Severity Criticality Documentation Date Start Date Code Code System Note Provider Name and Address Organization Details Recorded Time 60454 amoxicill in medicatio n Not available Not available Not available 10/17/2023 723 RxNorm Delmis Panchal null, [place] [facility] 4 09:40:11 60179 Product containin g penicilli n (product) medicatio n Not available Not available Not available 10/17/2023 94804 8001 SNOMED Delmis Panchal null, [place] [facility] 4 09:40:28 Medications Name Sig Start Date Stop Date Status Note LastModified by Organization Details LastModified Time trazodone 50 mg tablet TAKE 1-2 TABLETS BY MOUTH AT BEDTIME NEEDED 06/25 completed Not Available Not Available Not Available azithromyci n 250 mg tablet TAKE DIRECTED, STARTING THE DAY AFTER SURGERY 04/09 completed Not Available Not Available Not Available clindamycin HCl 150 mg capsule TAKE 1 CAPSULE BY MOUTH THREE TIMES A DAY FOR 7 DAYS STARTING THE DAY AFTER SURGERY 04/09 completed Not Available Not Available Not Available acetaminoph en 300 mg-codeine 30 mg tablet TAKE 1 TABLET BY MOUTH EVERY 6 HOURS NEEDED FOR PAIN 03/05 completed Not Available Not Available Not Available amlodipine 5 mg tablet TAKE 1 TABLET BY MOUTH EVERY DAY active Not Available Not Available No t Available triamcinolo ne acetonide 40 mg/mL suspension for injection Take 20 mg by injection route. 04/09 completed Not Available Not Available Not Available omeprazole 20 mg capsule,del ayed release TAKE 1 CAPSULE BY MOUTH EVERY DAY active Not Available Not Available No t Available ibuprofen 600 mg tablet PLEASE SEE ATTACHED FOR DETAILED DIRECTION S 03/05 completed Not Available Not Available Not Available oxycodone 5 mg tablet TAKE 1 TABLET EVERY 4 TO 6 HOURS BY MOUTH 06/25 completed Not Available Not Available Not Available rosuvastati n 5 mg tablet TAKE 1 TABLET BY MOUTH EVERYDAY AT BEDTIME 04/09 completed Not Available Not Available Not Available rosuvastati n 10 mg tablet TAKE 1 TABLET BY MOUTH EVERYDAY AT BEDTIME active Not Available Not Available No t Available Fiber Therapy (methylcell ulose) 500 mg tablet TAKE 1 TABLET EVERY DAY -TAKE IT WITH FULL GLASS OF WATER 07/22 completed Not Available Not Available Not Available chlorhexidi ne gluconate 0.12 % mouthwash RINSE WITH 15 ML, HOLD FOR 30 SECONDS AND EXPECTORA TE TWICE A DAY FOR 7 DAYS START DAY AFTER SURGERY 03/05 completed Not Available Not Available Not Available lidocaine (PF) 10 mg/mL (1 %) injection solution Take 1 mL by injection route. 03/05 completed Not Available Not Available Not Available Vitals Date Recorded Body height Body mass index (BMI) Body weight Provider Name and Address Organization Details Last Updated DateTime 01/02/2024 170.18 cm 21.9 kg/m2 61218.93 g Kristopher Naresh [facility] 01/02/2024 09:27:27 Date Recorded Body height Body mass index (BMI) Body weight Provider Name and Address Organization Details Last Updated DateTime 03/05/2024 170.18 cm 21.9 kg/m2 79715.93 g Triny Castelan [facility], [facility] 03/05/2024 09:02:16 Date Recorded Body height Body mass index (BMI) Body weight Provider Name and Address Organization Details Last Updated DateTime 06/25/2024 170.18 cm 21.9 kg/m2 29205.93 g Esthela Nicho [facility], [facility] 06/25/2024 14:07:51 Date Recorded Body height Provider Name an d Address Organization Details Last Updated DateTime 07/22/2024 170.18 cm Melissa Cici [facility], [facility] 07/22/2024 10:34:40 Social History Question Answer Notes LastModified by Organizat ion Details LastModified Time Tobacco Smoking Status Never Smoker Delmis dixon, [facility] 10/17/2023 09:41:04 What Is Your Level Of Alcohol Consumption? Moderate Information not available 10/17/2023 How Many Times Per Week Do You Consume Alcohol? 3-4 Times Per Week Information not available 10/17/2023 Are You Blind Or Do You Have Difficulty Seeing? No Information not available 10/17/2023 Are You Currently Employed? Yes Information not available 10/17/2023 Are You Deaf Or Do You Have Serious Difficulty Hearing? No Information not available 10/17/2023 Who Is Your Employer? Self Employed Information not available 10/17/2023 What Is Your Occupation? Sales Information not available 10/17/2023 Do You Use Any Illicit Or Recreational Drugs? No Information not available 10/17/2023 Are You Currently In School? No Information not available 10/17/2023 Do You Or Have You Ever Used Any Other Forms Of Tobacco Or Nicotine? No Information not available 10/17/2023 Sex: Unknown Functional Status Question Answer Note LastModified by Organization D etails LastModified Time Are you able to care for yourself? Yes Information n ot available 10/17/2023 Mental Status None recorded. Family History Nothing Reported. Medical History No medical history recorded. Gynecological HistoryNo gynecological history recorded. Obstetrics History GPAL:G 0 P 0 0 0 0 Past Encounters Encounter ID Performer Location Encounter Start Date Encounter Closed Date Diagnosis/Indication Diagnosis SNOMED-CT Code Diagnosis ICD10 Code Diagnosis Note [id number] MD TAMMI Estrada [address] [address] 10/17/2023 08:42:49 10/17/2023 10:33:16 Pain of left hand 2929369615 32589 M79.642 Additional diagnosis detail: Hand pain, left Arthritis of first carpometacarpal joint of left hand 5205009420 660196 M18.12 Additional diagnosis detail: Arthritis of carpometac arpal (CMC) joint of left thumb Ganglion c yst of left volar wrist 5167614393 8753933 M67.432 Additional diagnosis detail: Ganglion cyst of volar aspect of left wrist [id number] MD TAMMI Estrada [address] [facility] [address] [place] [address] 12/05/2023 10:51:35 12/05/2023 11:50:02 Arthritis of first carpometacarpal joint of left hand 7001980623 770831 M18.12 Additional diagnosis detail: Arthritis of carpometac arpal (CMC) joint of left thumb Ganglion c yst of left volar wrist 8487782237 3192514 M67.432 Additional diagnosis detail: Ganglion cyst of volar aspect of left wrist [id number] MD TAMMI Estrada [address] [facility] [address] [place] [address] 01/02/2024 09:18:18 01/02/2024 10:08:10 Arthritis of first carpometacarpal joint of left hand 4752720886 910314 M18.12 Additional diagnosis detail: Arthritis of carpometac arpal (CMC) joint of left thumb Ganglion c yst of left volar wrist 7009871328 0906606 M67.432 Additional diagnosis detail: Ganglion cyst of volar aspect of left wrist [id number] MD TAMMI Estrada 299 [facility] [address] [place] [address] 03/05/2024 08:59:37 03/05/2024 09:17:58 Arthritis of first carpometacarpal joint of left hand 1830625422 102882 M18.12 Additional diagnosis detail: Arthritis of carpometac arpal (CMC) joint of left thumb Ganglion c yst of left volar wrist 7938369566 9827428 M67.432 Additional diagnosis detail: Ganglion cyst of volar aspect of left wrist [id number] MD TAMMI Estrada [facility] [address] [address] 04/09/2024 10:50:11 04/09/2024 11:40:34 Arthritis of first carpometacarpal joint of left hand [id number] 218710 M18.12 Additional diagnosis detail: Arthritis of carpometac arpal (CMC) joint of left thumb Ganglion c yst of left volar wrist 5884845588 5322264 M67.432 Additional diagnosis detail: Ganglion cyst of volar aspect of left wrist [id number] MD TAMMI Estradamagnus landry [address] [facility] [address] [place] [address] 06/25/2024 13:51:48 06/25/2024 15:15:07 Arthritis of first carpometacarpal joint of left hand 0142899153 922501 M18.12 Additional diagnosis detail: Arthritis of carpometac arpal (CMC) joint of left thumb Ganglion c yst of left volar wrist 6766437388 2500239 M67.432 Additional diagnosis detail: Ganglion cyst of volar aspect of left wrist Health Concerns Section Related Observation LastModified by Organization Detai ls LastModified Time None Recorded Concern Status LastModified by Organization Details LastModified Time None Recorded Advance Directives Directive None Recorded Payers Encounter Date Sequence Insurance Name Policy Number Policy See Covered Member ID See Member ID Guarantor Name 12/05/2023 1 [facility] [id number] 1 Navjot Pierre Vamsi [id number] Navjot Antoniottdalia 01/02/2024 1 [facility] [id number] 1 Navjot Pierre Strattman [id number] Navjot Strattman 03/05/2024 1 [facility] [id number] 1 Navjot Pierre Strattman [id number] Navjot Strattman 04/09/2024 1 [facility] [id number] 1 Navjot Pierre Strattman [id number] Navjot Strattman 06/25/2024 1 [facility] [id number] 1 Navjot Pierre Strattman [id number] Navjot Vamsi Notes Date Note Type Note Provider Name and Address Organization Details Recorded Time 12/05/2023 text/html She returns to [facility] for follow-up regarding her left thumb CMC revision arthroplasty with subsidence and left volar ganglion cyst. She has since obtained a CT scan of the left hand to evaluate bone stock at the first metacarpal for surgical planning. She was looking for thumb CMC braces which would help to support the thumb, she ordered number of them online however she has not found any that fit her appropriately or helped her pain. She continues to have pain with activities but not at rest. The volar ganglion cyst has not changed in appearance, she notes mild pain with end range of motion of the wrist but at baseline she does not have symptoms. 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 We had discussed doing a volar ganglion cyst in office aspiration and injection on her last visit however she did not have time to do so at last office visit and rescheduled today to do this procedure. She has not noticed any change in her symptoms. She continues to have pain over the volar ganglion cyst and at the thumb CMC joint with activities. Denies any numbness or tingling. 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 I performed a cyst aspiration injection and a thumb CMC steroid injection when I last saw her on 01/02/2024. She got about 3 weeks of relief from the thumb CMC injection though her pain is starting to return. She notes increasing subluxation or instability at the thumb metacarpal base. She has difficulty with pinching and grasping activities as relates to pain. For the ganglion cyst, she notes somewhat decreased in size, she feels that it is firmer. It does hurt with palpation and not with rest. 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 Pain is localized to the base of the thumb CMC joint and over her volar ganglion cyst. She notes that the cyst has not gotten any larger in size since I had aspirated a few months ago, it does still cause pain over the cyst with certain wrist movements. She has discussed further management and is interested in moving forward with surgery in the form of revision CMC arthroplasty with tendon graft and revision volar ganglion cyst excision.Medical history significant for hyperlipidemia and hypertension for which she takes medication. She denies tobacco or nicotine use, denies illicit drug use, drinks alcohol occasionally. Yoselyn Jones MD [address] [facility] [address], [place], [phone], [facility] 04/09/2024 12:19:47 06/25/2024 text/html She presents for her first postop follow-up status post left thumb revision CMC arthroplasty with internal brace and palmaris longus autograft, left thumb removal of implant, and left volar mass revision excision, date of surgery 06/11/2024, she is 2 weeks postop. She has been in postop splint and compliant with splint wear and nonweightbearing restrictions. Her pain has been well-controlled. She notes a significant difference after surgery as she feels like the thumb is more stable . She denies any numbness or tingling. Yoselyn Jones MD [address] [place] [address], [place], [phone], [place] [facility] 06/25/2024 17:03:58 OBGyn Episode No OBEpisode recorded.
--- NOTE | 2024-07-28 08:16 | MHC.OFFVIS ---
Vital Signs 07/28/24 08:17 Height 5 ft 7 in Weight 139 lb 5.314 oz BMI 21.8 BP 128/70 Blood Pressure Location Rt brachial Position Sitting Pulse 68 Pulse Source Pulse Oximeter Pulse Oximetry (%) 98 Oxygen Delivery Method Room Air Intake Visit Reasons: one year follow up Intake Note: ESTABLISHED PATIENT for mgmt of GERD + Diverticulosis. Chief Complaint; C/O hemorrhoids with sx of pain, no hemo reported. Pt does report some mild to moderate concern regarding constipation. Pt denies any additional concerns at this time. Crossing [place] Required: No Accompanied by: Self / Same As Patient Allergies clavulanic acid [From Augmentin] Allergy (Severe, Verified 07/28/24 08:20) Anaphylaxis Penicillins Allergy (Severe, Verified 07/28/24 08:20) Anaphylaxis amoxicillin Adverse Reaction (Severe, Verified 07/28/24 08:20) Anaphylaxis HPI HPI one year follow up: Details: LAST VISIT: GERD (gastroesophageal reflux disease) IBS (irritable bowel syndrome) Plan Continue high-fiber diet. Patient was encouraged to take probiotics. Take fiber supplements as well. Continue omeprazole daily. Discussed with patient avoiding dietary triggers late night snacking. Staying upright 3 hours after meals discussed with patient. Patient will follow-up in 1 year, sooner on as needed basis patient is agreeable to this plan and verbalizes understanding of instructions. She was given the opportunity to ask questions and all questions answered. ? Thank you for allowing me to participate in her care Medications Refilled methylcellulose (laxative) (Citrucel) take it with full glass of water 500 mg PO DAILY 90 tabs 2RF K59.00 omeprazole 20 mg PO DAILY 90 caps 3RF K21.9 TODAY'S VISIT Patient is here today for follow-up. Patient reports that she has been feeling well. Patient had multiple revision surgeries to her wrist and has been on pain medications. Patient reports that she was constipated for period of time, however currently she is taking fiber and she is no longer constipated. Patient reports that she is taking omeprazole daily and her symptoms are suppressed. Denies dyspepsia, dysphagia or odynophagia. Patient also reports that she changed her diet. No longer is drinking coffee. Patient is drinking mushroom coffee instead. Reports less bloating and denies having any abdominal pain, discomfort or cramping. Patient denies any melena, hematochezia, unintentional weight loss or ribbon like stools. Patient is due to go for colonoscopy again next year in February. Patient denies any other GI concerning symptoms. [facility] Medical History COVID-19 vaccine series completed GERD (gastroesophageal reflux disease) Elevated cholesterol HTN (hypertension) Surgical History Hx of colonoscopy [place] teeth extracted History of tonsillectomy History of endoscopy History of hand surgery Social History Household Members: Family Are you a primary special needs child caregiver to a significant other at home: No Do you presently have visiting nurse or other home services: No Alcohol intake: current Alcohol intake frequency: a few times a month Patient Tobacco Use Status: Former Tobacco user Tobacco use type: Cigarette Review of Systems Const Denies weight gain and Denies weight loss ENT Reports no additional complaints, Denies dysphagia and Denies odynophagia Card Reports no additional complaints Resp Reports no additional complaints GI Denies abdominal pain, Denies belching, Denies melena, Denies bloating, Denies change in bowel habits, Denies dysphagia, Denies excessive flatus, Denies dyspepsia, Denies heartburn, Denies diarrhea, Denies loose stools, Denies nausea, Denies odynophagia and Denies vomiting Musc Reports no additional complaints Neuro Reports no additional complaints Psych Reports no additional complaints Endo Reports no additional complaints Physical Exam Vital Signs: Last Vital Signs Pulse 68 07/28/24 08:17 BP 128/70 07/28/24 08:17 Pulse Ox 98 07/28/24 08:17 Oxygen Delivery Method Room Air 07/28/24 08:17 BMI result Body Mass Index 21.8 Const General: healthy appearing, no acute distress and well developed Nutritional Appearance: well nourished Orientation/consciousness: patient oriented x3 Resp Effort & Inspection: normal respiratory effort, able to speak in complete sentences, no tracheal deviation and symmetric chest movement Auscultation: clear to auscultation bilaterally Cardio Rate: regular rate GI Inspection: Yes normal to inspection and No distended Palpation (GI): Soft to palpation, not firm, nontender and No hepatosplenomegaly present Auscultation: normal bowel sounds General: Yes no CVA tenderness Back/Spine/Pelvis Back: no CVA tenderness Skin General skin exam: elasticity normal, turgor normal and dry skin Neuro General: patient oriented x3 Psych Appearance: grossly normal Mental Status: mental status grossly normal Assessment & Plan Assessment & Plan (1) GERD (gastroesophageal reflux disease): Code(s): K21.9 - Gastro-esophageal reflux disease without esophagitis Qualifiers: Esophagitis presence: esophagitis presence not specified Qualified Code(s): K21.9 - Gastro-esophageal reflux disease without esophagitis (2) IBS (irritable bowel syndrome): Code(s): K58.9 - Irritable bowel syndrome, unspecified Qualifiers: Irritable bowel syndrome type: with constipation Qualified Code(s): K58.1 - Irritable bowel syndrome with constipation Plan Patient will continue to take omeprazole daily. Avoid dietary triggers and late night snacking. Staying upright for minimum 3 hours after meals discussed with patient. Patient will increase fluid intake and activity to promote better bowel motility. Patient will continue taking fiber with probiotics. Follow-up in 1 year, sooner on as needed basis. Patient is agreeable to this plan and verbalizes understanding of instructions. She was given the opportunity to ask questions and all questions answered. Thank you for allowing me to participate in her care Coding Level of Care Code Est Pt Level 3 (46228) Diagnoses Gastroesophageal reflux disease, unspecified whether esophagitis present K21.9 Esophagitis presence: esophagitis presence not specified Irritable bowel syndrome with constipation K58.1 Irritable bowel syndrome type: with constipation Time Spent (min) 25 Comment 15 minutes spent with patient and additional 10 minutes spent reviewing her records
[2024-07-28 08:17] VITALS: BP 128/70; PULSE 68; O2SAT 98; BMI 21.8
== END 2024-07-28 08:50 | disposition home or self-care (01) ==
PROVIDERS: PCP Internal Medicine; Visit Provider Nurse Practitioner Family
DX: K21.9 Gastro-esophageal reflux disease without esophagitis (principal); K58.1 Irritable bowel syndrome with constipation
CPT/HCPCS: 99213